=== PATIENT | female | born 1975 | race Caucasian/White ===

== ENCOUNTER 2020-06-19 06:24 | Inpatient (IN) ==
[~2020-06-19 06:24] MED LIST: Buffered Lidocaine 1% SYRIN 1 ml INTRADERM ONE; Lactated Ringers 1000 ml BAG 1,000 ML IV SCH
[2020-06-19] MEDS ORDERED: ceFAZolin 2 GM PREMIX 2 GM/50 ML BAG ONE (06:43)
[2020-06-19] MEDS ORDERED: Dexamethasone IV 4 MG/ML VIAL 1 ml VIAL ONE ×2 (06:43→07:01)
[2020-06-19] MEDS ORDERED: Ondansetron 4 mg VIAL 2 MG/ML 2 ml VIAL ONE ×2 (06:43→07:01)
[2020-06-19] MEDS ORDERED: Lidocaine 1% w EPI 1:100,000 MDV 20 ML VIAL ONE ×2 (06:49→06:53)
[2020-06-19] MEDS ORDERED: Methylene Blue 0.5 % 50 MG/10 ML AMP IV ONE (06:49)
[2020-06-19] MEDS ORDERED: Bupivacaine 0.25% SDV PF 10 ML VIAL INJ ONE (06:50)
[2020-06-19] MEDS ORDERED: ISOSULFAN BLUE 1% 5 ML VIAL 10 MG/ML SUBCUT ONE (06:52)
[2020-06-19] MEDS ORDERED: Bupivacaine 0.25% SDV 30 ML ONE (06:53)
[2020-06-19] MEDS ORDERED: Lidocaine 2% PF 5 ML VIAL ONE (07:01)
[2020-06-19] MEDS ORDERED: Midazolam 2 mg/2 ml VIAL 1 mg/ml 2 ml VIAL (2 mg) ONE (07:01)
[2020-06-19] MEDS ORDERED: fentaNYL 250 mcg/5 ml 50 MCG/ML 5 ml VIAL (250 MCG) ONE (07:01)
[2020-06-19] MEDS ORDERED: Propofol 10 MG/ML 20 ML BTL ONE (07:01)
[2020-06-19] MEDS ORDERED: Rocuronium 50 mg VIAL 10 mg/ml 5 ml VIAL (50 mg) ONE (07:01)
[2020-06-19] MEDS ORDERED: Naloxone 0.4 mg VIAL 0.4 mg/ml 1 ml VIAL IV PRN (08:03)
[2020-06-19] MEDS ORDERED: diPHENhydraMINE IV 50 MG/ML 1 ml VIAL (BENADRYL) IV PRN (08:03)
[2020-06-19] MEDS ORDERED: Phenylephrine 40 mcg/mL 10mL (400mcg) SYRINGE ONE (08:05)
[2020-06-19] MEDS ORDERED: HYDROmorphone 1 MG/1 ML SYRINGE ONE (10:15)
[2020-06-19] MEDS ORDERED: fentaNYL 100 mcg/2 ml 50 MCG/ML VIAL ONE (12:04)
[2020-06-19] MEDS: fentaNYL 100 mcg/2 ml 50 MCG/ML VIAL IV PRN ×4 (12:06→12:46)
[2020-06-19] MEDS ORDERED: diPHENhydraMINE IV 50 MG/ML 1 ml VIAL (BENADRYL) ONE (12:11)
[2020-06-19] MEDS ORDERED: Ondansetron 4 mg VIAL 2 MG/ML 2 ml VIAL IV PRN (12:35)
[2020-06-19] MEDS ORDERED: Al Hydrox/Mg Hydrox/Simet LIQ 30 ML UDC PO PRN (12:38)
[2020-06-19] MEDS ORDERED: Magnesium Hydroxide LIQ 30 ML UDC PO PRN (12:39)
[2020-06-19] MEDS: HYDROmorphone 1 MG/1 ML SYRINGE IV PRN ×3 (14:09→21:00)
[2020-06-19] MEDS: Lactated Ringers 1000 ml BAG 1,000 ML IV SCH (14:13)
[2020-06-19] MEDS: HYDROcodone/ACETAMIN 5/325 mg TAB PO PRN ×2 (15:13→18:18)
[2020-06-19] MEDS ORDERED: ceFAZolin 1 GM X 3 DOSES POST-OP Q8H (AddVan) IVPB SCH (16:00)
[2020-06-19] MEDS: ceFAZolin 1 GM X 3 DOSES POST-OP Q8H (AddVan) IVPB SCH (17:10)
[2020-06-19] MEDS: diPHENhydraMINE 25 mg TAB PO PRN (21:04)
[2020-06-20] MEDS: HYDROcodone/ACETAMIN 5/325 mg TAB PO PRN ×6 (00:23→17:04)
[2020-06-20] MEDS: ceFAZolin 1 GM X 3 DOSES POST-OP Q8H (AddVan) IVPB SCH ×2 (00:23→09:04)
[2020-06-20] MEDS: Lactated Ringers 1000 ml BAG 1,000 ML IV SCH (03:30)
[2020-06-20] MEDS: diPHENhydraMINE 25 mg TAB PO PRN ×2 (07:46→14:03)
[2020-06-20 08:18] LABS: ABS Monocytes 1.1 10^3/ul (0-0.8); ABS Neutrophils 11.2 10^3/ul (1.5-7.7); Hematocrit 27 % (35-47); Hemoglobin 9.2 g/dL (12.0-16.0); Mean Corpuscular HGB Conc 34 g/dL (31-36); Mean Corpuscular Hemoglobin 31 pg (27-31); Mean Corpuscular Volume 93 fL (80-97); Platelet Count 253 10^3/uL (150-450); Red Blood Count 2.95 10^6 /uL (3.70-4.87); Red Cell Distribution Width 13 % (10-15); White Blood Count 14.3 10^3/uL (3.5-10.8)
[2020-06-20 16:00] LABS: Hematocrit 24 % (35-47); Hemoglobin 8.3 g/dL (12.0-16.0)
[2020-06-20 17:47] VITALS: BP 104/64
== END 2020-06-20 19:33 | disposition short-term general hospital (02) | DRG 572 ==
LOC: AA 06:24 → SSU 13:34
PROVIDERS: ADMIT Plastic Surgery; ATTEND Plastic Surgery

== ENCOUNTER 2020-06-20 18:09 | Inpatient (IN) ==
[2020-06-20] MEDS: Lactated Ringers 1000 ml BAG 1,000 ML IV SCH (20:27)
[2020-06-20] MEDS: HYDROmorphone 1 MG/1 ML SYRINGE IV PRN (21:22)
[2020-06-20] MEDS: Ondansetron 4 mg VIAL 2 MG/ML 2 ml VIAL IV PRN (21:22)
[2020-06-20 22:29] LABS: ABS Lymphocytes 2.4 10^3/ul (1.0-4.8); ABS Neutrophils 8.9 10^3/ul (1.5-7.7); Eosinophil % 0.3 %; Hematocrit 24 % (35-47); Hemoglobin 8.2 g/dL (12.0-16.0); Lymphocyte % 19.3 %; Mean Corpuscular HGB Conc 34 g/dL (31-36); Mean Corpuscular Hemoglobin 31 pg (27-31); Mean Corpuscular Volume 91 fL (80-97); Mean Platelet Volume 9.8 fL (7.4-10.4); Platelet Count 253 10^3/uL (150-450); Red Blood Count 2.64 10^6 /uL (3.70-4.87); Red Cell Distribution Width 13 % (10-15); White Blood Count 12.3 10^3/uL (3.5-10.8)
[2020-06-21] MEDS: HYDROmorphone 1 MG/1 ML SYRINGE IV PRN ×6 (00:42→16:12)
[2020-06-21] MEDS: diPHENhydraMINE 25 mg TAB PO PRN ×2 (01:16→17:27)
[2020-06-21 04:24] LABS: ABS Eosinophils 0.1 10^3/ul (0-0.6); ABS Lymphocytes 2.2 10^3/ul (1.0-4.8); ABS Monocytes 0.9 10^3/ul (0-0.8); ABS Neutrophils 7.1 10^3/ul (1.5-7.7); Eosinophil % 0.5 %; Hematocrit 25 % (35-47); Hemoglobin 8.7 g/dL (12.0-16.0); Lymphocyte % 21.6 %; Mean Corpuscular HGB Conc 35 g/dL (31-36); Mean Corpuscular Hemoglobin 32 pg (27-31); Mean Corpuscular Volume 91 fL (80-97); Mean Platelet Volume 10.1 fL (7.4-10.4); Platelet Count 242 10^3/uL (150-450); Red Blood Count 2.73 10^6 /uL (3.70-4.87); Red Cell Distribution Width 13 % (10-15); White Blood Count 10.2 10^3/uL (3.5-10.8)
[2020-06-21] MEDS ORDERED: Lidocaine 1% w EPI 1:100,000 MDV 20 ML VIAL ONE (05:37)
[2020-06-21] MEDS: Ondansetron 4 mg VIAL 2 MG/ML 2 ml VIAL IV PRN (05:37)
[2020-06-21] MEDS ORDERED: Bupivacaine 0.25% SDV 30 ML ONE (05:37)
[2020-06-21] MEDS ORDERED: Midazolam 2 mg/2 ml VIAL 1 mg/ml 2 ml VIAL (2 mg) ONE (05:42)
[2020-06-21] MEDS ORDERED: fentaNYL 250 mcg/5 ml 50 MCG/ML 5 ml VIAL (250 MCG) ONE (05:42)
[2020-06-21] MEDS ORDERED: Phenylephrine IV 10 MG/ML 1 ml VIAL ONE (05:42)
[2020-06-21] MEDS ORDERED: Rocuronium 50 mg VIAL 10 mg/ml 5 ml VIAL (50 mg) ONE (05:42)
[2020-06-21] MEDS ORDERED: Propofol 10 MG/ML 20 ML BTL ONE (05:42)
[2020-06-21] MEDS ORDERED: Lidocaine 2% PF 5 ML VIAL ONE (05:42)
[2020-06-21] MEDS ORDERED: Dexamethasone IV 4 MG/ML VIAL 1 ml VIAL ONE (05:42)
[2020-06-21] MEDS ORDERED: ceFAZolin 1 GM ADVAN 1 GM ADDV.VIAL IVPB ONE (06:13)
[2020-06-21] MEDS ORDERED: Gentamicin ADULT 40 MG/ML VIAL (2 ML VIAL = 80 MG) ONE (06:13)
[2020-06-21] MEDS ORDERED: Bacitracin INJECTION 50,000 UNITS ONE (06:14)
[2020-06-21] MEDS ORDERED: ceFAZolin VIAL VIAL ONE (06:14)
[2020-06-21] MEDS ORDERED: Sugammadex 500 MG/5 ML 5 ml VIAL IV PUSH ONE (06:59)
[2020-06-21] MEDS ORDERED: Ondansetron 4 mg VIAL 2 MG/ML 2 ml VIAL ONE (06:59)
[2020-06-21] MEDS ORDERED: Acetaminophen IV 1 GM/100ML 100 ML ONE (06:59)
[2020-06-21 08:30] LABS: ABS Lymphocytes 1.1 10^3/ul (1.0-4.8); ABS Monocytes 0.6 10^3/ul (0-0.8); ABS Neutrophils 10.2 10^3/ul (1.5-7.7); Eosinophil % 0.1 %; Hematocrit 22 % (35-47); Hemoglobin 7.3 g/dL (12.0-16.0); Lymphocyte % 9.2 %; Mean Corpuscular HGB Conc 34 g/dL (31-36); Mean Corpuscular Hemoglobin 31 pg (27-31); Mean Corpuscular Volume 92 fL (80-97); Mean Platelet Volume 9.6 fL (7.4-10.4); Platelet Count 222 10^3/uL (150-450); Red Blood Count 2.34 10^6 /uL (3.70-4.87); Red Cell Distribution Width 13 % (10-15)
[2020-06-21] MEDS: Lactated Ringers 1000 ml BAG 1,000 ML IV SCH (09:37)
[2020-06-21] MEDS: HYDROcodone/ACETAMIN 5/325 mg TAB PO PRN ×4 (11:30→23:25)
[2020-06-21 13:07] LABS: Hematocrit 25 % (35-47); Hemoglobin 8.2 g/dL (12.0-16.0); Mean Corpuscular HGB Conc 34 g/dL (31-36); Mean Corpuscular Hemoglobin 31 pg (27-31); Mean Corpuscular Volume 93 fL (80-97); Mean Platelet Volume 9.8 fL (7.4-10.4); Platelet Count 227 10^3/uL (150-450); Red Blood Count 2.65 10^6 /uL (3.70-4.87); Red Cell Distribution Width 13 % (10-15); White Blood Count 13.1 10^3/uL (3.5-10.8)
[2020-06-21] MEDS ORDERED: Magnesium Hydroxide LIQ 30 ML UDC PO PRN (13:57)
[2020-06-21] MEDS ORDERED: Al Hydrox/Mg Hydrox/Simet LIQ 30 ML UDC PO PRN (13:58)
[2020-06-21] MEDS: Multivitamins/Minerals TAB PO SCH (14:09)
[2020-06-22] MEDS: HYDROmorphone 1 MG/1 ML SYRINGE IV PRN (00:02)
[2020-06-22] MEDS: diPHENhydraMINE 25 mg TAB PO PRN (03:17)
[2020-06-22 05:07] LABS: Hematocrit 20 % (35-47); Hemoglobin 6.8 g/dL (12.0-16.0); Mean Corpuscular HGB Conc 34 g/dL (31-36); Mean Corpuscular Hemoglobin 32 pg (27-31); Mean Corpuscular Volume 93 fL (80-97); Mean Platelet Volume 9.7 fL (7.4-10.4); Platelet Count 220 10^3/uL (150-450); Red Blood Count 2.14 10^6 /uL (3.70-4.87); Red Cell Distribution Width 13 % (10-15); White Blood Count 13.4 10^3/uL (3.5-10.8)
[2020-06-22] MEDS ORDERED: HYDROcodone/ACETAMIN 5/325 mg TAB ONE (08:25)
[2020-06-22] MEDS: Multivitamins/Minerals TAB PO SCH (08:29)
[2020-06-22 12:10] LABS: ABS Basophils 0.1 10^3/ul (0-0.2); ABS Eosinophils 0.1 10^3/ul (0-0.6); ABS Lymphocytes 2.5 10^3/ul (1.0-4.8); ABS Monocytes 0.7 10^3/ul (0-0.8); ABS Neutrophils 8.8 10^3/ul (1.5-7.7); Eosinophil % 0.9 %; Hematocrit 20 % (35-47); Hemoglobin 6.7 g/dL (12.0-16.0); Lymphocyte % 20.7 %; Mean Corpuscular HGB Conc 34 g/dL (31-36); Mean Corpuscular Hemoglobin 31 pg (27-31); Mean Corpuscular Volume 93 fL (80-97); Mean Platelet Volume 9.6 fL (7.4-10.4); Nucleated Red Blood Cells % 0.1; Platelet Count 231 10^3/uL (150-450); Red Blood Count 2.13 10^6 /uL (3.70-4.87); Red Cell Distribution Width 13 % (10-15); White Blood Count 12.3 10^3/uL (3.5-10.8)
[2020-06-22] MEDS: HYDROcodone/ACETAMIN 5/325 mg TAB PO PRN ×3 (12:34→21:02)
[2020-06-22 17:44] LABS: ABS Basophils 0.1 10^3/ul (0-0.2); ABS Eosinophils 0.2 10^3/ul (0-0.6); ABS Lymphocytes 2.9 10^3/ul (1.0-4.8); ABS Monocytes 0.8 10^3/ul (0-0.8); ABS Neutrophils 7.9 10^3/ul (1.5-7.7); Eosinophil % 1.6 %; Hematocrit 20 % (35-47); Hemoglobin 6.9 g/dL (12.0-16.0); Lymphocyte % 24.6 %; Mean Corpuscular HGB Conc 34 g/dL (31-36); Mean Corpuscular Hemoglobin 32 pg (27-31); Mean Corpuscular Volume 93 fL (80-97); Mean Platelet Volume 9.6 fL (7.4-10.4); Nucleated Red Blood Cells % 0.1; Platelet Count 252 10^3/uL (150-450); Red Blood Count 2.18 10^6 /uL (3.70-4.87); Red Cell Distribution Width 13 % (10-15); White Blood Count 11.9 10^3/uL (3.5-10.8)
[2020-06-23] MEDS: HYDROcodone/ACETAMIN 5/325 mg TAB PO PRN ×2 (05:03→08:51)
[2020-06-23 08:21] VITALS: BP 112/68
[2020-06-23] MEDS: Multivitamins/Minerals TAB PO SCH (08:50)
[2020-06-23 09:04] LABS: Hematocrit 28 % (35-47); Hemoglobin 9.3 g/dL (12.0-16.0); Mean Corpuscular HGB Conc 33 g/dL (31-36); Mean Corpuscular Hemoglobin 31 pg (27-31); Mean Corpuscular Volume 93 fL (80-97); Mean Platelet Volume 9.8 fL (7.4-10.4); Platelet Count 230 10^3/uL (150-450); Red Cell Distribution Width 14 % (10-15); White Blood Count 11.1 10^3/uL (3.5-10.8)
== END 2020-06-23 12:45 | disposition home or self-care (01) | DRG 920 ==
LOC: SSU 19:34
PROVIDERS: ADMIT Plastic Surgery; ATTEND Plastic Surgery